=== PATIENT | female | born 1940 | race Caucasian/White ===

== ENCOUNTER 2018-01-01 02:51 | Emergency (ER) | END 2018-01-01 06:00 | disposition home or self-care (01) ==

== ENCOUNTER 2018-05-03 16:52 | Emergency (ER) | END 2018-05-03 19:32 | disposition left against medical advice (07) ==

== ENCOUNTER 2019-04-17 03:52 | Observation (INO) | payer MEDICARE, OTHER ==
[~2019-04-17] VITALS: Ht 154.9 cm; Wt 83.6 kg
[~2019-04-17 03:52] MED LIST: ALPR0.254 PO; ATOR20TA38 PO; CIPR500T4 PO; DOCU-144 PO; HYDR-4011 PO; IBUP-1542 PO; LOSA50TA14 PO; LOVA10TA63 PO; METF-849 PO
--- NOTE | 2019-04-17 04:40 | ERD ---
ER Documentation Chief Complaint Chief Complaint chest pain since 010. pt took x3 nitro SL. HPI This is a 78-year-old female presents the emergency room for evaluation of high blood pressure, chest discomfort. The patient states that she does have a history of hypertension and is on oral medications however they are not working. She states that she took nitroglycerin at 2:45 in the morning and it did not help with her chest discomfort so she came to the ER for evaluation. Patient denies any blurred vision but does states she has a headache she denies any abdominal pain, vomiting or diarrhea. She denies any aggravating or relieving factors at this time for her symptoms. ROS All systems reviewed and are negative except as per history of present illness. Medications Home Meds Active Scripts Ciprofloxacin Hcl* (Ciprofloxacin Hcl*) 500 Mg Tablet, 500 MG PO BID for 7 Days, TAB Prov:LOLA NORIEGA MD 01/01/18 Ibuprofen* (Motrin*) 600 Mg Tab, 600 MG PO Q6H PRN for PAIN AND OR ELEVATED TEMP, #30 TAB Prov:REVA PAEZ PA-C 08/13/16 Docusate Sodium* (Colace*) 100 Mg Capsule, 100 MG PO BID, #30 CAP Prov:TRINO HELLER MD 08/13/16 Hydrocodone/Acetaminophen ([place] 5-325 Tablet) 1 Each Tablet, 1 TAB PO Q6H PRN for PAIN, #15 TAB Prov:TRINO HELLER MD 08/13/16 Reported Medications Lovastatin* (Lovastatin*) 10 Mg Tablet, 10 MG PO HS, TAB 07/09/16 Atorvastatin Calcium* (Atorvastatin Calcium*) 20 Mg Tablet, 20 MG PO QHS, #30 TAB 07/09/16 Losartan Potassium* (Losartan Potassium*) 50 Mg Tablet, 50 MG PO DAILY, TAB 07/09/16 Metformin* (Glucophage*) 500 Mg Tab, 500 MG PO WITH BREAKFAST, #30 TAB 07/09/16 Alprazolam* (Alprazolam*) 0.25 Mg Tablet, 0.25 MG PO DAILY, TAB 07/09/16 Allergies Allergies: Coded Allergies: Penicillins (Verified Allergy, Unknown, 07/09/16) PMhx/Soc History of Surgery: Yes (Appy,Quirino Cataract Surg) Anesthesia Reaction: No Hx Neurological Disorder: No Hx Respiratory Disorders: No Hx Cardiac Disorders: Yes (HTN) Hx Psychiatric Problems: No Hx Miscellaneous Medical Probl: Yes (DM2) Hx Alcohol Use: No Hx Substance Use: No Hx Tobacco Use: No Smoking Status: Never smoker Physical Exam Vitals Vital Signs Date Temp Pulse Resp B/P (MAP) Pulse Ox O2 O2 Flow FiO2 Time Delivery Rate 04/17/19 96.7 79 20 233/99 98 03:55 (143) Physical Exam INITIAL VITAL SIGNS: Reviewed by me GENERAL: The patient is well developed and appropriate for usual state of health in no apparent distress HEENT: Pupils equal, round, and reactive to light. EOMI. There is no scleral icterus. NECK: C-spine is soft and supple, there is no meningismus. There is no cervical lymphadenopathy. LUNGS: Clear to auscultation bilaterally. There are no rales, wheezes or rhonchi. HEART: Regular rate and rhythm, no murmurs, clicks, rubs or gallops. ABDOMEN: Soft, non-tender, non-distended. There are bowel sounds in all four quadrants. No rebound or guarding. EXTREMITIES: There is no peripheral cyanosis or edema. No focal swelling or erythema. NEUROLOGICAL: The patient moves all four extremities with 5/5 strength. Cranial nerves II - XII are intact. Normal gait. Alert and oriented SKIN: There is no apparent rash or petechiae. HEME/LYMPHATIC: There is no evidence of excessive bruising or lymphedema. PSYCHIATRIC: The patient does not appear anxious or depressed. Result Diagram: 04/17/19 04204/17/19 0421 Results 24 hrs Laboratory Tests Test 04/17/19 04:21 White Blood Count 8.3 10^3/ul Red Blood Count 3.74 10^6/ul Hemoglobin 11.7 g/dl Hematocrit 34.8 % Mean Corpuscular Volume 93.0 fl Mean Corpuscular Hemoglobin 31.3 pg Mean Corpuscular Hemoglobin Concent 33.6 g/dl Red Cell Distribution Width 12.7 % Platelet Count 239 10^3/UL Mean Platelet Volume 10.2 fl Immature Granulocytes % 0.100 % Neutrophils % 39.1 % Lymphocytes % 51.3 % Monocytes % 6.0 % Eosinophils % 2.9 % Basophils % 0.6 % Nucleated Red Blood Cells % 0.0 /100WBC Immature Granulocytes # 0.010 10^3/ul Neutrophils # 3.3 10^3/ul Lymphocytes # 4.3 10^3/ul Monocytes # 0.5 10^3/ul Eosinophils # 0.2 10^3/ul Basophils # 0.1 10^3/ul Nucleated Red Blood Cells # 0.0 10^3/ul Sodium Level 135 mmol/L Potassium Level 4.5 mmol/L Chloride Level 102 mmol/L Carbon Dioxide Level 24 mmol/L Anion Gap 9 Blood Urea Nitrogen 10 mg/dl Creatinine 0.64 mg/dl Est Glomerular Filtrat Rate mL/min mL/min Glucose Level 126 mg/dl Calcium Level 9.2 mg/dl Troponin I < 0.012 ng/ml Current Medications Medications Dose Sig/Timi Start Time Status Last (Trade) Ordered Route PRN Stop Time Admin Dose Reason Admin Hydralazine 10 mg ONCE ONCE 04/17/19 DC 04/17/19 HCl IV 05:00 04/17/19 04:40 (Apresoline) 05:01 Ondansetron 4 mg ER BRIDGE 04/17/19 HCl (Zofran PRN IV 05:00 04/18/19 Inj) NAUSEA/VOMITI 04:59 NG 650 mg ER BRIDGE 04/17/19 Acetaminophen PRN PO 05:00 04/18/19 (Tylenol .MILD PAIN 04:59 Tab) 1-3 OR TEMP Procedures/MDM EKG: Rate/Rhythm: [Normal Sinus Rhythm] QRS, ST, T-waves: [No changes consistent w/ acute ischemia] Impression: [No evidence of ischemia or arrhythmia] Chest X-ray 1V Interpreted by me: Soft Tissue: No acute abnormalities Bones: No acute abnormalities Mediastinum/Cardiac Silhouette/Lungs: [No acute abnormalities] This is a 78-year-old female who presents to the emergency room for evaluation of chest pain and elevated blood pressure. On my evaluation the patient's blood pressure was 216/137. The patient complained of central chest pressure. Her EKG was obtained and does not show any ST elevation. Chest x-ray shows no signs of infiltrate. Lab work was obtained and patient's troponin level was normal. The patient was given 10 mg of IV hydralazine on reevaluation her BP is now 17 0/78. She does states she is feeling better however given her age and chest pain and multiple risk factors the patient will benefit from inpatient hospitalization for possible medication adjustments. The patient will be admitted to the telemetry floor under the care of Dr. Valerio. Departure Diagnosis: Primary Impression: Chest pain Additional Impression: Hypertensive urgency Condition: MILLI Bethea DO Apr 17, 2019 04:40
[2019-04-17] MEDS ORDERED: hydrALAzine 20 MG INJ IV ONE ×2 (05:00→07:00)
[2019-04-17] MEDS ORDERED: ACETAMINOPHEN 325 MG TAB PO PRN ×2 (05:00→05:30)
[2019-04-17] MEDS ORDERED: ONDANSETRON 4 MG INJ IV PRN ×2 (05:00→05:30)
[2019-04-17] MEDS ORDERED: NITROGLYCERIN (SL) 0.4 MG TAB SL PRN (05:30)
[2019-04-17] MEDS ORDERED: HYDROCODONE/APAP (5/325) TAB PO PRN (05:30)
[2019-04-17] MEDS ORDERED: GLUCOSE GEL 15 GRAM TUBE PO PRN ×2 (05:30)
[2019-04-17] MEDS ORDERED: ALBUTEROL/IPRATROPIUM (NEB) 3 ML AMP HHN PRN (05:30)
[2019-04-17] MEDS ORDERED: NACL 0.9% 3 ML SYG IV SCH (05:30)
[2019-04-17] MEDS ORDERED: DEXTROSE 50% 50 ML SYRINGE IV PRN ×2 (05:30)
[2019-04-17] MEDS ORDERED: GLUCAGON 1 MG INJ IM PRN (05:30)
[2019-04-17] MEDS ORDERED: GLUCOSE GEL 15 GRAM TUBE BUCCAL PRN (05:30)
--- NOTE | 2019-04-17 05:58 | HP ---
Date/Time of Note Date/Time of Note DATE: 04/17/19 TIME: 05:52 Assessment/Plan VTE Prophylaxis SCD applied (from Nsg): Yes Pharmacological prophylaxis: other Lines/Catheters IV Catheter Type (from Nrsg): Saline Lock Assessment/Plan Assessment/Plan 1. Chest pain: Most likely musculoskeletal in etiology as it is completely reproducible on palpation -will however rule out ACS -Admit to telemetry unit -EKG without ST-T wave abnormalities -First troponin is negative. Check additional troponin -2D echo -Check A1c, fasting lipid, TSH -Cardiology consult 2. Hypertensive urgency: BP better controlled status post 10 mg IV hydralazine -As mentioned in the HPI, patient has been taking losartan and 3 sublingual nitroglycerin every day for hypertension. Patient and family were educated about the nitroglycerin. -Continue BP meds. Adjust as needed 3. Type 2 diabetes: Check A1c -Continue metformin 4. Headache: Secondary to elevated blood pressure -No focal weakness, no blurry vision -Manage BP -Obtain head CT if persists Result Diagram: 04/17/19 0421 04/17/19 0421 Results 24hrs Laboratory Tests Test 04/17/19 04:21 White Blood Count 8.3 # Red Blood Count 3.74 L Hemoglobin 11.7 L Hematocrit 34.8 L Mean Corpuscular Volume 93.0 Mean Corpuscular Hemoglobin 31.3 Mean Corpuscular Hemoglobin Concent 33.6 Red Cell Distribution Width 12.7 Platelet Count 239 # Mean Platelet Volume 10.2 Immature Granulocytes % 0.100 Neutrophils % 39.1 Lymphocytes % 51.3 H Monocytes % 6.0 Eosinophils % 2.9 Basophils % 0.6 Nucleated Red Blood Cells % 0.0 Immature Granulocytes # 0.010 Neutrophils # 3.3 Lymphocytes # 4.3 H Monocytes # 0.5 Eosinophils # 0.2 Basophils # 0.1 Nucleated Red Blood Cells # 0.0 Sodium Level 135 Potassium Level 4.5 Chloride Level 102 Carbon Dioxide Level 24 Anion Gap 9 Blood Urea Nitrogen 10 Creatinine 0.64 Est Glomerular Filtrat Rate mL/min Glucose Level 126 Calcium Level 9.2 Troponin I < 0.012 HPI/ROS Admit Date/Time Admit Date/Time Hx of Present Illness Patient is a 78-year-old female with a history of hypertension and type 2 diabetes who presents to the ER complaining of elevated blood pressure, chills and chest pain discomfort. Symptoms started a few hours prior to arrival. Chest pain is diffuse pain on physical exam it was completely reproducible on palpation. She also reported nausea but no vomiting. Also denied blurry vision, focal weakness/numbness. Family was at the bedside and that they helped with the history taking. When presented to the ER, blood pressure was 233/99. She was given 10 mg IV hydralazine with improvement of blood pressure. EKG without ST-T wave abnormalities and first troponin is negative. Chest x-ray shows mild interstitial prominence may reflect mild congestion in the appropriate setting. PMH/Family/Social Past Medical History Past Surgical Hx: other (SEE HPI) Family History Significant Family History: no pertinent family hx Social History Alcohol Use: other Smoking Status: Unknown if ever smoked Drug Use: other Exam Constitutional: other (no acute distress) Head: normocephalic, atraumatic Eyes: PERRL Respiratory: normal air movement Cardiovascular: nl pulses Gastrointestinal: soft Extremities: normal pulses Medications Current Medications Ondansetron HCl (Zofran Inj) 4 mg ER BRIDGE PRN IV NAUSEA/VOMITING; Start 04/17/19 at 05:00; Stop 04/18/19 at 04:59 Acetaminophen (Tylenol Tab) 650 mg ER BRIDGE PRN PO .MILD PAIN 1-3 OR TEMP; Start 04/17/19 at 05:00; Stop 04/18/19 at 04:59 IV Flush (NS 3 ml) 3 ml PER PROTOCOL IV ; Start 04/17/19 at 05:30 Ondansetron HCl (Zofran Inj) 4 mg Q6H PRN IV NAUSEA/VOMITING; Start 04/17/19 at 05:30 Aspirin (Aspirin) 81 mg DAILY PO ; Start 04/17/19 at 09:00 Nitroglycerin (Nitroglycerin (Sl Tab) 0.4 Mg) 1 tab Q5M PRN SL .CHEST PAIN; Start 04/17/19 at 05:30 Acetaminophen (Tylenol Tab) 650 mg Q6H PRN PO .PAIN 1-3 OR TEMP; Start 04/17/19 at 05:30 Heparin Sodium (Porcine) (Heparin (5000 Units/1ml)) 5,000 unit Q12 SC ; Start 04/17/19 at 09:00 Albuterol/ Ipratropium (Duoneb) 3 ml Q2H RESP THERAPY PRN HHN SHORTNESS OF BREATH; Start 04/17/19 at 05:30 Alprazolam (Xanax) 0.25 mg DAILY PO ; Start 04/17/19 at 09:00 Atorvastatin Calcium (Lipitor) 20 mg QHS PO ; Start 04/17/19 at 21:00 Docusate Sodium (Colace) 100 mg BID PO ; Start 04/17/19 at 09:00 Acetaminophen/ Hydrocodone Bitart ([place] (5/325)) 1 tab Q6H PRN PO PAIN; Start 04/17/19 at 05:30 Losartan Potassium (Cozaar) 50 mg DAILY PO ; Start 04/17/19 at 09:00 Metformin HCl (Glucophage) 500 mg WITH BREAKFAST PO ; Start 04/17/19 at 08:00 Diagnostic Test (Pha) (Accu-Chek) 1 ea AC MEALS AND BEDTIME XX ; Start 04/17/19 at 07:00 Miscellaneous Information 1 ea NOTE XX ; Start 04/17/19 at 05:30 Glucose (Glutose) 15 gm Q15M PRN PO DECREASED GLUCOSE; Start 04/17/19 at 05:30 Glucose (Glutose) 22.5 gm Q15M PRN PO DECREASED GLUCOSE; Start 04/17/19 at 05:30 Dextrose (D50w Syringe) 25 ml Q15M PRN IV DECREASED GLUCOSE; Start 04/17/19 at 05:30 Dextrose (D50w Syringe) 50 ml Q15M PRN IV DECREASED GLUCOSE; Start 04/17/19 at 05:30 Glucagon (Glucagen) 1 mg Q15M PRN IM DECREASED GLUCOSE; Start 04/17/19 at 05:30 Glucose (Glutose) 15 gm Q15M PRN BUCCAL DECREASED GLUCOSE; Start 04/17/19 at 05:30 Coded Allergies: Penicillins (Verified Allergy, Unknown, 07/09/16) Social History Smoking Status: Never smoker Exam/Review of Systems Vital Signs Vitals Vital Signs Date Temp Pulse Resp B/P (MAP) Pulse Ox O2 O2 Flow FiO2 Time Delivery Rate 04/17/19 78 18 145/76 100 Room Air 05:20 (99) 04/17/19 96.7 03:55 ANA HAIR MD Apr 17, 2019 05:58
[2019-04-17 06:41] VITALS: BP 179/77; PULSE 92; RESP 20
[2019-04-17 07:20] VITALS: BP 129/63; PULSE 88; RESP 20
[2019-04-17] MEDS: ACCU-CHEK XX SCH ×2 (07:25→11:18)
[2019-04-17] MEDS ORDERED: metFORMIN 500 MG TAB PO SCH (07:55)
[2019-04-17 08:38] VITALS: Ht 154.9 cm; Wt 83.6 kg
[2019-04-17] MEDS ORDERED: AMLODIPINE 10 MG TAB PO SCH (09:00)
[2019-04-17] MEDS ORDERED: ASPIRIN 81 MG TAB PO SCH (09:00)
[2019-04-17] MEDS ORDERED: HEPARIN 5,000 UNIT/1 ML VIAL SC SCH (09:00)
[2019-04-17] MEDS ORDERED: DOCUSATE SODIUM 100 MG CAP PO SCH (09:00)
[2019-04-17] MEDS ORDERED: LOSARTAN 50 MG TAB PO SCH (09:00)
[2019-04-17] MEDS ORDERED: ALPRAZOLAM 0.25 MG TAB PO SCH (09:00)
[2019-04-17 11:23] VITALS: BP 117/57; PULSE 100; RESP 20
--- NOTE | 2019-04-17 11:25 | PN ---
Date/Time of Note Date/Time of Note DATE: 04/17/19 TIME: 11:17 Assessment/Plan VTE Prophylaxis Risk score (from Nsg)>0 risk: 5 SCD applied (from Nsg): Yes Pharmacological prophylaxis: NA/contraindicated Pharm contraindication: low risk/ambulating Lines/Catheters IV Catheter Type (from Nrsg): Saline Lock Assessment/Plan Assessment/Plan 1. Chest pain: Most likely musculoskeletal in etiology as it is completely reproducible on palpation -will however rule out ACS -Admit to telemetry unit -EKG without ST-T wave abnormalities -First troponin is negative. Check additional troponin -2D echo -Check A1c, fasting lipid, TSH -Cardiology consult. 2. Hypertensive urgency: BP better controlled status post 10 mg IV hydralazine -Taking losartan daily for HTN. The patient did not tell me she takes nitroglycerin regularly for BP control, only PRN chest pain. -Continue BP meds. Adjust as needed 3. Type 2 diabetes: Check A1c -Continue metformin 4. Headache: Secondary to elevated blood pressure and recent nitroglycerin use. -No focal weakness, no blurry vision -Manage BP -Now resolved. Result Diagram: 04/17/1942004/17/19420 Subjective 24 Hr Interval Summary Free Text/Dictation No acute overnight events. Patient is chest pain free now. Son at bedside. She gives a different history to me. Says she does get chest pressure, usually associated with emotional events, last happened 2 days ago, responded to sublingual nitro. She does NOT take nitro every day for blood pressure control. Last night around midnight she developed chest pressure, took sublingual nitro 3 times, eventually resolved after 2 hours. Exam/Review of Systems Exam Vitals Vital Signs Date Temp Pulse Resp B/P (MAP) Pulse Ox O2 O2 Flow FiO2 Time Delivery Rate 04/17/19 97.8 88 20 129/63 99 Room Air 07:20 (85) Exam Gen: Well appearing woman lying in bed, no acute distress. HEENT: Moist mucous membranes, clear oropharynx Neck: No JVD, supple. Card: Regular rate and rhythm, no murmurs. Pulm: Clear to auscultation bilaterally Abd: Soft, nontender, nondistended. Ext: No cyanosis/clubbing/edema Results Results 24hrs Laboratory Tests Test 04/17/19 04:21 04/17/19 08:31 White Blood Count 8.3 # Red Blood Count 3.74 L Hemoglobin 11.7 L Hematocrit 34.8 L Mean Corpuscular Volume 93.0 Mean Corpuscular Hemoglobin 31.3 Mean Corpuscular Hemoglobin Concent 33.6 Red Cell Distribution Width 12.7 Platelet Count 239 # Mean Platelet Volume 10.2 Immature Granulocytes % 0.100 Neutrophils % 39.1 Lymphocytes % 51.3 H Monocytes % 6.0 Eosinophils % 2.9 Basophils % 0.6 Nucleated Red Blood Cells % 0.0 Immature Granulocytes # 0.010 Neutrophils # 3.3 Lymphocytes # 4.3 H Monocytes # 0.5 Eosinophils # 0.2 Basophils # 0.1 Nucleated Red Blood Cells # 0.0 Sodium Level 135 Potassium Level 4.5 Chloride Level 102 Carbon Dioxide Level 24 Anion Gap 9 Blood Urea Nitrogen 10 Creatinine 0.64 Est Glomerular Filtrat Rate mL/min Glucose Level 126 Calcium Level 9.2 Troponin I < 0.012 Bedside Glucose 135 Medications Medication Current Medications Ondansetron HCl (Zofran Inj) 4 mg ER BRIDGE PRN IV NAUSEA/VOMITING; Start 04/17/19 at 05:00; Stop 04/18/19 at 04:59 Acetaminophen (Tylenol Tab) 650 mg ER BRIDGE PRN PO .MILD PAIN 1-3 OR TEMP; Start 04/17/19 at 05:00; Stop 04/18/19 at 04:59 IV Flush (NS 3 ml) 3 ml PER PROTOCOL IV ; Start 04/17/19 at 05:30 Ondansetron HCl (Zofran Inj) 4 mg Q6H PRN IV NAUSEA/VOMITING; Start 04/17/19 at 05:30 Aspirin (Aspirin) 81 mg DAILY PO Last administered on 04/17/19at 08:33; Admin Dose 81 MG; Start 04/17/19 at 09:00 Nitroglycerin (Nitroglycerin (Sl Tab) 0.4 Mg) 1 tab Q5M PRN SL .CHEST PAIN; Start 04/17/19 at 05:30 Acetaminophen (Tylenol Tab) 650 mg Q6H PRN PO .PAIN 1-3 OR TEMP; Start 04/17/19 at 05:30 Heparin Sodium (Porcine) (Heparin (5000 Units/1ml)) 5,000 unit Q12 SC Last administered on 04/17/19at 08:35; Admin Dose 5,000 UNIT; Start 04/17/19 at 09:00 Albuterol/ Ipratropium (Duoneb) 3 ml Q2H RESP THERAPY PRN HHN SHORTNESS OF BREATH; Start 04/17/19 at 05:30 Alprazolam (Xanax) 0.25 mg DAILY PO Last administered on 04/17/19at 08:35; Admin Dose 0.25 MG; Start 04/17/19 at 09:00 Atorvastatin Calcium (Lipitor) 20 mg QHS PO ; Start 04/17/19 at 21:00 Docusate Sodium (Colace) 100 mg BID PO Last administered on 04/17/19at 08:33; Admin Dose 100 MG; Start 04/17/19 at 09:00 Acetaminophen/ Hydrocodone Bitart ([place] (5/325)) 1 tab Q6H PRN PO PAIN; Start 04/17/19 at 05:30 Losartan Potassium (Cozaar) 50 mg DAILY PO Last administered on 04/17/19at 08:34; Admin Dose 50 MG; Start 04/17/19 at 09:00 Metformin HCl (Glucophage) 500 mg WITH BREAKFAST PO Last administered on 04/17/19at 08:34; Admin Dose 500 MG; Start 04/17/19 at 07:55 Diagnostic Test (Pha) (Accu-Chek) 1 ea AC MEALS AND BEDTIME XX Last administered on 04/17/19at 07:25; Admin Dose 1 EA; Start 04/17/19 at 07:00 Miscellaneous Information 1 ea NOTE XX ; Start 04/17/19 at 05:30 Glucose (Glutose) 15 gm Q15M PRN PO DECREASED GLUCOSE; Start 04/17/19 at 05:30 Glucose (Glutose) 22.5 gm Q15M PRN PO DECREASED GLUCOSE; Start 04/17/19 at 05:30 Dextrose (D50w Syringe) 25 ml Q15M PRN IV DECREASED GLUCOSE; Start 04/17/19 at 05:30 Dextrose (D50w Syringe) 50 ml Q15M PRN IV DECREASED GLUCOSE; Start 04/17/19 at 05:30 Glucagon (Glucagen) 1 mg Q15M PRN IM DECREASED GLUCOSE; Start 04/17/19 at 05:30 Glucose (Glutose) 15 gm Q15M PRN BUCCAL DECREASED GLUCOSE; Start 04/17/19 at 05:30 Amlodipine Besylate (Norvasc) 10 mg DAILY PO ; Start 04/17/19 at 09:00 CRUZ GARCIA MD Apr 17, 2019 11:25
--- NOTE | 2019-04-17 11:59 | CONS ---
Assessment/Plan Assessment/Plan Assessment/Plan (Daily) hypertensive urgency atypical chest pain likely triggered by emotional stress as daughter was leaving town will check repeat troponin, echo and EKG if unremarkable can follow up as outpatient Consultation Date/Type/Reason Admit Date/Time Type of Consult Cardiology Date/Time of Note DATE: 04/17/19 TIME: 11:52 Hx of Present Illness Pt presented with complaint of chest pressure and uncontrolled hypertension/. At baseline walks without difficulty was emotionally upset at time of pain. DOes feel better has similar episodes every week releived with NTG but not immediately Respiratory: No shortness of breath Cardiovascular: chest pain Past Medical History Home Meds Active Scripts Ciprofloxacin Hcl* (Ciprofloxacin Hcl*) 500 Mg Tablet, 500 MG PO BID for 7 Days, TAB Prov:LOLA NORIEGA MD 01/01/18 Ibuprofen* (Motrin*) 600 Mg Tab, 600 MG PO Q6H PRN for PAIN AND OR ELEVATED TEMP, #30 TAB Prov:REVA PAEZ PA-C 08/13/16 Docusate Sodium* (Colace*) 100 Mg Capsule, 100 MG PO BID, #30 CAP Prov:TRINO HELLER MD 08/13/16 Hydrocodone/Acetaminophen ([place] 5-325 Tablet) 1 Each Tablet, 1 TAB PO Q6H PRN for PAIN, #15 TAB Prov:TRINO HELLER MD 08/13/16 Reported Medications Lovastatin* (Lovastatin*) 10 Mg Tablet, 10 MG PO HS, TAB 07/09/16 Atorvastatin Calcium* (Atorvastatin Calcium*) 20 Mg Tablet, 20 MG PO QHS, #30 TAB 07/09/16 Losartan Potassium* (Losartan Potassium*) 50 Mg Tablet, 50 MG PO DAILY, TAB 07/09/16 Metformin* (Glucophage*) 500 Mg Tab, 500 MG PO WITH BREAKFAST, #30 TAB 07/09/16 Alprazolam* (Alprazolam*) 0.25 Mg Tablet, 0.25 MG PO DAILY, TAB 07/09/16 Medications Current Medications Ondansetron HCl (Zofran Inj) 4 mg ER BRIDGE PRN IV NAUSEA/VOMITING; Start 04/17/19 at 05:00; Stop 04/18/19 at 04:59 Acetaminophen (Tylenol Tab) 650 mg ER BRIDGE PRN PO .MILD PAIN 1-3 OR TEMP; Start 04/17/19 at 05:00; Stop 04/18/19 at 04:59 IV Flush (NS 3 ml) 3 ml PER PROTOCOL IV ; Start 04/17/19 at 05:30 Ondansetron HCl (Zofran Inj) 4 mg Q6H PRN IV NAUSEA/VOMITING; Start 04/17/19 at 05:30 Aspirin (Aspirin) 81 mg DAILY PO Last administered on 04/17/19at 08:33; Admin Dose 81 MG; Start 04/17/19 at 09:00 Nitroglycerin (Nitroglycerin (Sl Tab) 0.4 Mg) 1 tab Q5M PRN SL .CHEST PAIN; Start 04/17/19 at 05:30 Acetaminophen (Tylenol Tab) 650 mg Q6H PRN PO .PAIN 1-3 OR TEMP; Start 04/17/19 at 05:30 Heparin Sodium (Porcine) (Heparin (5000 Units/1ml)) 5,000 unit Q12 SC Last administered on 04/17/19at 08:35; Admin Dose 5,000 UNIT; Start 04/17/19 at 09:00 Albuterol/ Ipratropium (Duoneb) 3 ml Q2H RESP THERAPY PRN HHN SHORTNESS OF BREATH; Start 04/17/19 at 05:30 Alprazolam (Xanax) 0.25 mg DAILY PO Last administered on 04/17/19at 08:35; Admin Dose 0.25 MG; Start 04/17/19 at 09:00 Atorvastatin Calcium (Lipitor) 20 mg QHS PO ; Start 04/17/19 at 21:00 Docusate Sodium (Colace) 100 mg BID PO Last administered on 04/17/19at 08:33; Admin Dose 100 MG; Start 04/17/19 at 09:00 Acetaminophen/ Hydrocodone Bitart ([place] (5/325)) 1 tab Q6H PRN PO PAIN; Start 04/17/19 at 05:30 Losartan Potassium (Cozaar) 50 mg DAILY PO Last administered on 04/17/19at 08:34; Admin Dose 50 MG; Start 04/17/19 at 09:00 Metformin HCl (Glucophage) 500 mg WITH BREAKFAST PO Last administered on 04/17/19at 08:34; Admin Dose 500 MG; Start 04/17/19 at 07:55 Diagnostic Test (Pha) (Accu-Chek) 1 ea AC MEALS AND BEDTIME XX Last adminis tered on 04/17/19at 11:18; Admin Dose 1 EA; Start 04/17/19 at 07:00 Miscellaneous Information 1 ea NOTE XX ; Start 04/17/19 at 05:30 Glucose (Glutose) 15 gm Q15M PRN PO DECREASED GLUCOSE; Start 04/17/19 at 05:30 Glucose (Glutose) 22.5 gm Q15M PRN PO DECREASED GLUCOSE; Start 04/17/19 at 05:30 Dextrose (D50w Syringe) 25 ml Q15M PRN IV DECREASED GLUCOSE; Start 04/17/19 at 05:30 Dextrose (D50w Syringe) 50 ml Q15M PRN IV DECREASED GLUCOSE; Start 04/17/19 at 05:30 Glucagon (Glucagen) 1 mg Q15M PRN IM DECREASED GLUCOSE; Start 04/17/19 at 05:30 Glucose (Glutose) 15 gm Q15M PRN BUCCAL DECREASED GLUCOSE; Start 04/17/19 at 05:30 Amlodipine Besylate (Norvasc) 10 mg DAILY PO Last administered on 04/17/19at 11 :18; Admin Dose 10 MG; Start 04/17/19 at 09:00 Allergies: Coded Allergies: Penicillins (Verified Allergy, Unknown, 07/09/16) Social History Smoking Status: Never smoker Exam/Review of Systems Vital Signs Vitals Vital Signs Date Temp Pulse Resp B/P (MAP) Pulse Ox O2 O2 Flow FiO2 Time Delivery Rate 04/17/19 97.6 100 20 117/57 96 Room Air 11:23 (77) Exam Constitutional: alert, oriented Respiratory: clear to auscultation Cardiovascular: regular rate and rhythm (reproducible pain on palpation) Labs Result Diagram: 04/17/19 0421 04/17/19 0421 Results 24hrs Laboratory Tests Test 04/17/19 04:21 04/17/19 08:31 04/17/19 11:16 White Blood Count 8.3 # Red Blood Count 3.74 L Hemoglobin 11.7 L Hematocrit 34.8 L Mean Corpuscular Volume 93.0 Mean Corpuscular Hemoglobin 31.3 Mean Corpuscular Hemoglobin Concent 33.6 Red Cell Distribution Width 12.7 Platelet Count 239 # Mean Platelet Volume 10.2 Immature Granulocytes % 0.100 Neutrophils % 39.1 Lymphocytes % 51.3 H Monocytes % 6.0 Eosinophils % 2.9 Basophils % 0.6 Nucleated Red Blood Cells % 0.0 Immature Granulocytes # 0.010 Neutrophils # 3.3 Lymphocytes # 4.3 H Monocytes # 0.5 Eosinophils # 0.2 Basophils # 0.1 Nucleated Red Blood Cells # 0.0 Sodium Level 135 Potassium Level 4.5 Chloride Level 102 Carbon Dioxide Level 24 Anion Gap 9 Blood Urea Nitrogen 10 Creatinine 0.64 Est Glomerular Filtrat Rate mL/min Glucose Level 126 Calcium Level 9.2 Troponin I < 0.012 Bedside Glucose 135 227 H Medications Medications Current Medications Ondansetron HCl (Zofran Inj) 4 mg ER BRIDGE PRN IV NAUSEA/VOMITING; Start 04/17/19 at 05:00; Stop 04/18/19 at 04:59 Acetaminophen (Tylenol Tab) 650 mg ER BRIDGE PRN PO .MILD PAIN 1-3 OR TEMP; Start 04/17/19 at 05:00; Stop 04/18/19 at 04:59 IV Flush (NS 3 ml) 3 ml PER PROTOCOL IV ; Start 04/17/19 at 05:30 Ondansetron HCl (Zofran Inj) 4 mg Q6H PRN IV NAUSEA/VOMITING; Start 04/17/19 at 05:30 Aspirin (Aspirin) 81 mg DAILY PO Last administered on 04/17/19at 08:33; Admin Dose 81 MG; Start 04/17/19 at 09:00 Nitroglycerin (Nitroglycerin (Sl Tab) 0.4 Mg) 1 tab Q5M PRN SL .CHEST PAIN; Start 04/17/19 at 05:30 Acetaminophen (Tylenol Tab) 650 mg Q6H PRN PO .PAIN 1-3 OR TEMP; Start 04/17/19 at 05:30 Heparin Sodium (Porcine) (Heparin (5000 Units/1ml)) 5,000 unit Q12 SC Last administered on 04/17/19at 08:35; Admin Dose 5,000 UNIT; Start 04/17/19 at 09:00 Albuterol/ Ipratropium (Duoneb) 3 ml Q2H RESP THERAPY PRN HHN SHORTNESS OF BREATH; Start 04/17/19 at 05:30 Alprazolam (Xanax) 0.25 mg DAILY PO Last administered on 04/17/19at 08:35; Admin Dose 0.25 MG; Start 04/17/19 at 09:00 Atorvastatin Calcium (Lipitor) 20 mg QHS PO ; Start 04/17/19 at 21:00 Docusate Sodium (Colace) 100 mg BID PO Last administered on 04/17/19 08:33; Admin Dose 100 MG; Start 04/17/19 at 09:00 Acetaminophen/ Hydrocodone Bitart ([place] (5/325)) 1 tab Q6H PRN PO PAIN; Start 04/17/19 at 05:30 Losartan Potassium (Cozaar) 50 mg DAILY PO Last administered on 04/17/19 08:34; Admin Dose 50 MG; Start 04/17/19 at 09:00 Metformin HCl (Glucophage) 500 mg WITH BREAKFAST PO Last administered on 04/17/19 08:34; Admin Dose 500 MG; Start 04/17/19 at 07:55 Diagnostic Test (Pha) (Accu-Chek) 1 ea AC MEALS AND BEDTIME XX Last administered on 04/17/19 11:18; Admin Dose 1 EA; Start 04/17/19 at 07:00 Miscellaneous Information 1 ea NOTE XX ; Start 04/17/19 at 05:30 Glucose (Glutose) 15 gm Q15M PRN PO DECREASED GLUCOSE; Start 04/17/19 at 05:30 Glucose (Glutose) 22.5 gm Q15M PRN PO DECREASED GLUCOSE; Start 04/17/19 at 05:30 Dextrose (D50w Syringe) 25 ml Q15M PRN IV DECREASED GLUCOSE; Start 04/17/19 at 05:30 Dextrose (D50w Syringe) 50 ml Q15M PRN IV DECREASED GLUCOSE; Start 04/17/19 at 05:30 Glucagon (Glucagen) 1 mg Q15M PRN IM DECREASED GLUCOSE; Start 04/17/19 at 05:30 Glucose (Glutose) 15 gm Q15M PRN BUCCAL DECREASED GLUCOSE; Start 04/17/19 at 05:30 Amlodipine Besylate (Norvasc) 10 mg DAILY PO Last administered on 04/17/19 11:18; Admin Dose 10 MG; Start 04/17/19 at 09:00 CLAUDETTE BURRIS MD Apr 17, 2019 11:59
--- NOTE | 2019-04-17 12:18 | RADRPT ---
Echocardiogram Report Patient Name: Ashkan MARCOS ID: [id number] : 1940 (78y 10m)Study Date: 04/17/2019 9:57:34 AM Gender: FAccession #: [id number] [place] [facility] [place] Location[place] [facility] Ref.Physician: ANA HAIR Height(Cm): 155 BSA: 1.85Weight(Kg): 79.8 Quality: AdequateOrder Physician: ANA HAIR Account #: Procedures: Echocardiographic Report: Transthoracic echocardiogram examination. Indications: Chest Pain. Measurements: 2D/M Mode Doppler Measurement Value Normal Range Measurement Value Normal Range LA Volume 73.6 [ 22.0 - 52.0 ] ml AV Peak Brennon 1.6 [ 100.0 - 170.0 ] c m/sec LA Volume Index 41 [ 16 - 34 ] ml/m2 AV Peak PG 10.0 [ 2.0 - 9.0 ] mmHg LVIDd 2D 3.9 [ 3.8 - 5.2 ] cm LVOT Peak Brennon 1.2 [ 70.0 - 110.0 ] cm /sec LVIDs 2D 2.7 [ 2.2 - 3.5 ] cm LVOT Peak PG 6.0 [ 2.0 - 6.0 ] mmHg LVPWd 2D 1.1 [ 0.6 - 0.9 ] cm MV E Peak Brennon 0.8 [ 60.0 - 130.0 ] cm /sec IVSd 2D 1.2 [ 0.6 - 0.9 ] cm MV A Peak Brennon 0.8 [ 100.0 - 120.0 ] c m/sec AoR Diam 2D 3.0 [ 2.3 - 3.1 ] cm MV E/A 0.9 [ 0.8 - 1.5 ] ratio EDV 2D 65.5 [ 46.0 - 106.0 ] ml MV PHT 70.0 [ 20.0 - 100.0 ] ms ec ESV 2D 26.5 [ 14.0 - 42.0 ] ml MV Decel Time 238 [ 104 - 258 ] msec EF 2D 59.5 [ 54.0 - 74.0 ] percent MV Decel Hart 3 LA Dimen 2D 3.8 [ 2.7 - 3.8 ] cm Lat E` Brennon 0.1 [ 10.0 - 15.0 ] cm/ sec Lateral E/E` 7.8 [ 1.0 - 2.0 ] ratio Med E` Brennon 0.1 cm/sec MV E/A 0.9 [ 0.8 - 1.5 ] ratio MV PHT 70.0 [ 20.0 - 100.0 ] ms ec MVA PHT 3.1 [ 2.0 - 4.0 ] cm2 PV Peak Brennon 1.1 [ 40.0 - 80.0 ] cm/ sec PV Peak PG 5.0 mmHg Findings: Left Ventricle: Normal left ventricular cavity size. Normal left ventricular systolic function. Tissue Doppler/Mitral Doppler indices are consistent with impaired relaxation (Stage I diastolic dysfunction). E/E' is 9. Mild concentric left ventricular hypertrophy. The left ventricular ejection fraction is visually estimated at 65 %. Right Ventricle: Normal right ventricular size. Normal right ventricular systolic function. Left Atrium: There is mild enlargement of left atrium this is best appreciated by CORNELL of 32 ml/m2. Right Atrium: The right atrium is normal in size and appearance. Atrial Septum: Normal atrial septum. Mitral Valve: Normal appearance of the mitral valve leaflets. Mild mitral annular calcification. Trivial mitral regurgitation. Aortic Valve: No hemodynamically significant aortic stenosis by Doppler. Aortic cusps appear mildly calcified. No aortic regurgitation. Tricuspid Valve: Normal appearance of the tricuspid valve. No evidence of tricuspid regurgitation. Pulmonic Valve: Normal pulmonic valve appearance and function with trivial (physiologic) regurgitation. No evidence of pulmonic regurgitation. Pericardium: Normal pericardium with no significant pericardial effusion. Aorta: Normal aortic root. IVC: Normal inferior vena cava appearance. Pulmonary Artery: Normal pulmonary artery size. Conclusions: Normal left ventricular cavity size. Normal left ventricular systolic function. Tissue Doppler/Mitral Doppler indices are consistent with impaired relaxation (Stage I diastolic dysfunction). E/E' is 9. Mild concentric left ventricular hypertrophy. The left ventricular ejection fraction is visually estimated at 65 %. Electronically Signed By: Bienvenido Kendall 2019-04-17 12:17:41 PDT
--- NOTE | 2019-04-17 12:36 | PDOCDIS ---
Discharge Instructions DIAGNOSIS Discharge Diagnosis Non-cardiac chest discomfort CONDITION [id number] Patient Condition: [id number] Good ACTIVITY: [id number] Activity Restrictions: [id number] No Restrictions FOLLOW UP/APPOINTMENTS Follow-up Plan 1. Continue to take all medications as prescribed. 2. For chest pressure that does not respond to nitroglycerin, return to the emergency room. 3. See your primary care doctor in 1-2 weeks. CRUZ GARCIA MD Apr 17, 2019 12:36
[2019-04-17 15:11] VITALS: BP 104/54; PULSE 84; RESP 20
--- NOTE | 2019-04-17 16:51 | DS ---
Date/Time of Note Date/Time of Note DATE: 04/17/19 TIME: 16:50 Discharge Summary Admission/Discharge Info Admit Date/Time Apr 17, 2019 at 04:56 Discharge Date/Time Apr 17, 2019 Discharge Diagnosis Non-cardiac chest discomfort Patient Condition: Good Hx of Present Illness Patient is a 78-year-old woman with a history of hypertension and type 2 di abetes who presents to the ER complaining of elevated blood pressure, chills and chest pain discomfort. Symptoms started around midnight. Chest pain is diffuse pain on physical exam it was completely reproducible on palpation. She also reported nausea but no vomiting. Also denied blurry vision, focal weakness/numbness. Family was at the bedside and that they helped with the hi story taking. When presented to the ER, blood pressure was 233/99. She was given 10 mg IV hydralazine with improvement of blood pressure. EKG without ST-T wave abnormalities and first troponin is negative. Chest x-ray shows mild interstitial prominence may reflect mild congestion in the appropriate setting. Hospital Course Home blood pressure meds were resumed, and blood pressure normalized. She was chest pain free. Troponin were negative x2. EKG was done, negative for ST-T changes concerning for ischemia. Dr. Kendall was consulted as well. A decision was made that further inpatient cardiac workup is not needed. Home Meds Active Scripts Ciprofloxacin Hcl* (Ciprofloxacin Hcl*) 500 Mg Tablet, 500 MG PO BID for 7 Days, TAB Prov:LOLA NORIEGA MD 01/01/18 Ibuprofen* (Motrin*) 600 Mg Tab, 600 MG PO Q6H PRN for PAIN AND OR ELEVATED TEMP, #30 TAB Prov:RVEA PAEZ PA-C 08/13/16 Docusate Sodium* (Colace*) 100 Mg Capsule, 100 MG PO BID, #30 CAP Prov:TRINO HELLER MD 08/13/16 Hydrocodone/Acetaminophen ([place] 5-325 Tablet) 1 Each Tablet, 1 TAB PO Q6H PRN for PAIN, #15 TAB Prov:TRINO HELLER MD 08/13/16 Reported Medications Lovastatin* (Lovastatin*) 10 Mg Tablet, 10 MG PO HS, TAB 07/09/16 Atorvastatin Calcium* (Atorvastatin Calcium*) 20 Mg Tablet, 20 MG PO QHS, #30 TAB 07/09/16 Losartan Potassium* (Losartan Potassium*) 50 Mg Tablet, 50 MG PO DAILY, TAB 07/09/16 Metformin* (Glucophage*) 500 Mg Tab, 500 MG PO WITH BREAKFAST, #30 TAB 07/09/16 Alprazolam* (Alprazolam*) 0.25 Mg Tablet, 0.25 MG PO DAILY, TAB 07/09/16 Follow-up Plan 1. Continue to take all medications as prescribed. 2. For chest pressure that does not respond to nitroglycerin, return to the emergency room. 3. See your primary care doctor in 1-2 weeks. Primary Care Provider Pepe García MD Time spent on discharge: > 30 minutes Pending Labs Laboratory Tests Test 04/17/19 04:21 04/17/19 08:31 04/17/19 10:38 04/17/19 11:16 White Blood 8.3 Count 10^3/ul (4.8-10 .8) Red Blood 3.74 Count 10^6/ul (4.20-5 .40) Hemoglobin 11.7 g/dl (12.0-16.0 ) Hematocrit 34.8 % (37.0-47.0) Mean 93.0 Corpuscular fl (82.0-101.0) Volume Mean 31.3 Corpuscular pg (29.0-33.0) Hemoglobin Mean 33.6 Corpuscular g/dl (32.0-37.0 Hemoglobin Conc ) ent Red Cell 12.7 Distribution % (11.5-14.5) Width Platelet Count 239 10^3/UL (140-41 5) Mean Platelet 10.2 Volume fl (7.4-10.4) Immature 0.100 Granulocytes % % (0.001-0.429) Neutrophils % 39.1 % (39.0-77.0) Lymphocytes % 51.3 % (15.0-51.0) Monocytes % 6.0 % (0.0-11.0) Eosinophils % 2.9 % (0.0-7.0) Basophils % 0.6 % (0.0-2.0) Nucleated Red 0.0 Blood Cells % /100WBC (0.0-0. 0) Immature 0.010 Granulocytes # 10^3/ul (0.0-0. 031) Neutrophils # 3.3 10^3/ul (1.6-7. 5) Lymphocytes # 4.3 10^3/ul (0.8-2. 9) Monocytes # 0.5 10^3/ul (0.3-0. 9) Eosinophils # 0.2 10^3/ul (0.0-0. 5) Basophils # 0.1 10^3/ul (0.0-0. 1) Nucleated Red 0.0 Blood Cells # 10^3/ul (0.0-0. 0) Sodium Level 135 mmol/L (135-144 ) Potassium 4.5 Level mmol/L (3.5-5.1 ) Chloride Level 102 mmol/L (97-110) Carbon Dioxide 24 Level mmol/L (21-31) Anion Gap 9 (5-13) Blood Urea 10 mg/dl (7-20) Nitrogen Creatinine 0.64 mg/dl (0.44-1.0 0) Est Glomerular mL/min (>60) Filtrat Rate mL/min Glucose Level 126 mg/dl (70-220) Calcium Level 9.2 mg/dl (8.4-10.2 ) Troponin I < 0.012 < 0.012 ng/ml (0.000-0. ng/ml (0.000-0 120) .120) Bedside 135 227 Glucose mg/dL (70-220) mg/dL (70-220) Creatine 60 Kinase IU/L (23-200) Creatine Kinase 0.9 Index Creatinine 0.56 Kinase MB ng/ml (0.0-2.4 (Mass) ) B-Type 504 Natriuretic PG/ML (0-450) Peptide CRUZ GARCIA MD Apr 17, 2019 16:51
[2019-04-17] MEDS ORDERED: ATORVASTATIN 20 MG TAB PO SCH (21:00)
== END 2019-04-17 16:00 | disposition home or self-care (01) ==
LOC: E/R 03:52 → INTOOBSV 04:56 → TEL 04:56
PROVIDERS: ADMIT Internal Medicine; ATTEND Internal Medicine
DX: R07.89 Other chest pain (principal); I16.0 Hypertensive urgency; I10 Essential (primary) hypertension; E11.9 Type 2 diabetes mellitus without complications; Z79.84 Long term (current) use of oral hypoglycemic drugs
CPT/HCPCS: 36415; 71045; 80048; 82550; 82553; 82962; 83880; 84484; 85025; 93005; 93306; 96374; 99285; G0378; J0360; J1644; 99217

== ENCOUNTER 2019-05-27 23:05 | Emergency (ER) | payer MEDICARE, OTHER ==
[~2019-05-27] VITALS: Ht 152.4 cm; Wt 80.5 kg
[~2019-05-27 23:05] MED LIST changes: +CYCL5TAB PO; +NIT3 SL; +SITA25TA3 PO
[2019-05-27 23:32] VITALS: Ht 152.4 cm; Wt 80.5 kg
[2019-05-28] MEDS ORDERED: ACETAMINOPHEN 500 MG TAB PO ONE (00:30)
[2019-05-28 02:17] VITALS: BP 159/89; PULSE 89; RESP 16
== END 2019-05-28 02:19 | disposition home or self-care (01) ==
LOC: E/R 23:05
DX: I10 Essential (primary) hypertension (principal); R51 Headache; Z79.84 Long term (current) use of oral hypoglycemic drugs
CPT/HCPCS: 70450